=== PATIENT | female | born 1945 | race Caucasian/White ===

== ENCOUNTER 2023-12-01 13:00 | Outpatient (CLI) | payer MEDICARE, SELFPAY ==
--- NOTE | ~2023-12-01 | MM_ITS ---
EXAMINATION: MM screening [facility] w [facility] HISTORY: Screening mammogram TECHNIQUE: Craniocaudal and mediolateral oblique 3-D tomosynthesis images were obtained and synthetic 2-D images were generated. CAD analysis was submitted and interpreted. COMPARISON: No prior mammogram is available for comparison at this institution. BREAST PARENCHYMAL COMPOSITION: There are scattered areas of fibroglandular density. FINDINGS: There is no evidence of suspicious mass, calcification, or architectural distortion to sugg est malignancy in either breast. IMPRESSION: 1. No mammographic evidence of malignancy. 2. Recommend routine screening mammography in one year. BI-RADS Category 1: Negative Reviewed, dictated and finalized at location A.
== END 2023-12-01 13:01 ==
PROVIDERS: PCP Physician Assistant; Visit Provider Physician Assistant
DX: Z12.31 Encounter for screening mammogram for malignant neoplasm of breast (principal)
CPT/HCPCS: 77063; 77067

== ENCOUNTER 2024-03-12 09:49 | Outpatient (CLI) | payer MEDICARE, SELFPAY | END 2024-03-12 09:50 | disposition home or self-care (01) | LOC: ANHAUDIO 09:50 | PROVIDERS: PCP Family Medicine; Visit Provider Family Medicine | DX: H90.3 Sensorineural hearing loss, bilateral (principal) | CPT/HCPCS: 92557; 92567 ==

== ENCOUNTER 2024-04-10 08:26 | Outpatient (CLI) | payer MEDICARE, SELFPAY ==
[2024-04-10 10:28] LABS: HIV 1/2 Ab P24 Ag Result Negative (Negative)
[2024-04-10 11:07] LABS: Hepatitis C Virus Antibody Negative (Negative)
[2024-04-12 15:13] LABS: Hepatitis B DNA PCR NOT DETECTED (NOT DETECTED); Hepatitis B DNA PCR NOT DETECTED Log IU/mL (NOT DETECTED)
[2024-04-12 16:53] LABS: Hepatitis C RNA, Quant PCR <15 NOT DETECTED IU/mL (NOT DETECTED)
== END 2024-04-10 08:27 | disposition home or self-care (01) ==
PROVIDERS: PCP Family Medicine; Visit Provider Internal Medicine Rheumatology
DX: Z11.4 Encounter for screening for human immunodeficiency virus [HIV] (principal); M06.9 Rheumatoid arthritis, unspecified; Z11.59 Encounter for screening for other viral diseases; G62.9 Polyneuropathy, unspecified; R53.83 Other fatigue; M19.90 Unspecified osteoarthritis, unspecified site; M79.10 Myalgia, unspecified site; R73.09 Other abnormal glucose; E55.9 Vitamin D deficiency, unspecified; E53.8 Deficiency of other specified B group vitamins; R79.89 Other specified abnormal findings of blood chemistry
CPT/HCPCS: 36415; 86703; 86803; 87517; 87522; G0432

== ENCOUNTER 2024-05-03 09:18 | Outpatient (CLI) | payer MEDICARE, SELFPAY ==
--- NOTE | ~2024-05-03 | XR_ITS ---
Right wrist Technique: PA and lateral views were obtained. Clinical History: Pain Findings: No acute fracture or dislocation is seen. Osseous alignment is anatomic. There is mild dege nerative change of the triscaphe joint. Soft tissues are unremarkable. Impression: Mild degenerative change of the triscaphe joint. Reviewed, dictated and finalized at location . Impression: Mild degenerative change of the triscaphe joint.
--- NOTE | ~2024-05-03 | XR_ITS ---
Right Hand Technique: PA and lateral views were obtained. Clinical History: Pain Findings: No acute fracture or dislocation is seen. Osseous alignment is anatomic. There are minimal degenerative change of the DIP joints. Soft tissues are unremarkable. Impression: Minimal degenerative change of the DIP joints. Reviewed, dictated and finalized at location . Impression: Minimal degenerative change of the DIP joints.
--- NOTE | ~2024-05-03 | XR_ITS ---
AP view of the pelvis and AP and lateral views of the bilateral hip Clinical history: Pain Findings: No acute fracture or dislocation is seen. Osseous alignment is anatomic. Bilateral hip and SI joint spaces are preserved. Soft tissues are unremarkable. Impression: No significant abnormality is seen. Reviewed, dictated and finalized at location . Impression: No significant abnormality is seen.
--- NOTE | ~2024-05-03 | XR_ITS ---
Left wrist Technique: PA and lateral views were obtained. Clinical History: Pain Findings: No acute fracture or dislocation is seen. Osseous alignment is anatomic. Joint spaces are p reserved. Soft tissues are unremarkable. Impression: Unremarkable left wrist radiographs. Reviewed, dictated and finalized at location M. Impression: Unremarkable left wrist radiographs.
--- NOTE | ~2024-05-03 | XR_ITS ---
Left Hand Technique: PA and lateral views were obtained. Clinical History: Pain Findings: No acute fracture or dislocation is seen. Osseous alignment is anatomic. Joint spaces are p reserved. Soft tissues are unremarkable. Impression: Unremarkable left hand. Reviewed, dictated and finalized at location M. Impression: Unremarkable left hand.
== END 2024-05-03 09:19 | disposition home or self-care (01) ==
PROVIDERS: PCP Internal Medicine Rheumatology; Visit Provider Internal Medicine Rheumatology
DX: M25.50 Pain in unspecified joint (principal); M19.041 Primary osteoarthritis, right hand; M19.031 Primary osteoarthritis, right wrist
CPT/HCPCS: 73100; 73120; 73521

== ENCOUNTER 2024-05-28 12:36 | Outpatient (CLI) | payer MEDICARE, SELFPAY ==
--- NOTE | ~2024-05-28 | MR_ITS ---
MRI of the lumbar spine Clinical History: Back pain Technique: Axial T2-weighted images, and sagittal T1-weighted, T2-weighted, and T2 fat-sat images wer e acquired. Findings: There is posterior fusion from L2 through L5, with bilateral rods and transpedicular screws present. There is this is a prior posterior decompression changes at these levels. There is underlyi ng 6 mm anterolisthesis of L4 over L5. There is 3 mm retrolisthesis of L2 over L3. No suspicious bone marrow signal abnormality evident. At L1-L2, there is severe degenerative disc narrowing. There is mild disc bulge with advanced facet a rthropathy. There is mild central canal stenosis. There is moderate to advanced right neural foramina l narrowing, and minimal left neural foraminal narrowing. At L2-L3, there is severe degenerative disc narrowing. There is mild disc bulge. No spinal canal sten osis. There is moderate to advanced left neural foraminal narrowing, and mild right neural foraminal narrowing. At L3-L4, there is no spinal canal stenosis. There is mild to moderate bilateral neural foraminal sherita rowing. At L4-L5, there is disc bulge/uncovering. There is no haja canal stenosis. There is moderate bilater al neural foraminal narrowing, right worse than left. At L5-S1, there is severe degenerative disc narrowing. There is diffuse disc bulge with severe facet arthropathy. No haja central canal stenosis. There is severe bilateral neural foraminal contrast. Paravertebral soft tissues are unremarkable aside from expected postoperative change. Impression: Posterior fusion changes from L2 through L5. 6 mm anterolisthesis of L4 over L5. 3 mm retrolisthesis of L2 over L3. Severe degenerative spondylosis, as above. Reviewed, dictated and finalized at [facility]. Impression: Posterior fusion changes from L2 through L5. 6 mm anterolisthesis of L4 over L5. 3 mm retrolisthesis of L2 over L3. Severe degenerative spondylosis, as above.
== END 2024-05-28 12:37 | disposition home or self-care (01) ==
PROVIDERS: PCP Internal Medicine Rheumatology; Visit Provider Internal Medicine Rheumatology
DX: M47.896 Other spondylosis, lumbar region (principal); Z98.1 Arthrodesis status
CPT/HCPCS: 72148

== ENCOUNTER 2024-06-18 14:21 | Outpatient (CLI) | payer MEDICARE, SELFPAY ==
--- NOTE | ~2024-06-18 | XR_ITS ---
EXAMINATION: XR hand RT min 3V DATE: 06/18/2024 14:30 INDICATION: Right hand injury and pain of the fourth digit. TECHNIQUE: 4 views of right hand were obtained. COMPARISON: Right wrist radiographs 05/03/2024 FINDINGS: Alignment is normal. No fracture. There is severe osteoarthritis of triscaphe joint and mil d osteoarthritis of first carpometacarpal joint, third metacarpophalangeal joint, and some of the int erphalangeal joints. There is moderate osteoarthritis of first interphalangeal joint and second and t hird distal interphalangeal joints. There is a punctate calcification dorsal to fifth distal interpha langeal joint. IMPRESSION: 1. Polyarticular osteoarthritis. Reviewed, dictated and finalized at location A. EXPERIENCE ANALYST
== END 2024-06-18 14:22 | disposition home or self-care (01) ==
LOC: GOSHIMG 14:23
PROVIDERS: PCP Family Medicine; Visit Provider Family Medicine
DX: M79.644 Pain in right finger(s) (principal); M19.041 Primary osteoarthritis, right hand
CPT/HCPCS: 73130

== ENCOUNTER 2025-05-01 12:51 | Outpatient (CLI) | payer MEDICARE, SELFPAY ==
--- NOTE | ~2025-05-01 | DEXA_ITS ---
Bone Density Report Name: SHYLA CISNEROS Age: 80 Sex: Female Ethnicity: White Date of : 1945 Indication: postmenopausal; screening for osteoporosis; height loss; prior fracture; rheumatoid arthritis; Referring Provider: YOGI BEAVER Study: Bone densitometry was performed. Exam Date: May 01, 2025 Accession number: [id number] Bone Density: Region BMD T-score Z-score Classification Femoral Neck (Left) 0.703 -1.3 0.9 Osteopenia Total Hip (Left) 0.699 -2.0 0.0 Osteopenia Femoral Neck (Right) 0.754 -0.9 1.4 Normal Total Hip (Right) 0.649 -2.4 -0.4 Osteopenia Total Hip Mean 0.674 -2.2 -0.2 Osteopenia World Health Organization criteria for BMD impression classify patients as: Normal (T-score at or above -1.0), Osteopenia (T-score between -1.0 and -2.5), or Osteoporosis (T-score at or below -2.5). 10-year Fracture Risk(1): Major Osteoporotic Fracture 22% Hip Fracture 4.7% Reported Risk Factors: [place] (), Neck BMD=0.703, BMI=23.0, previous fracture, rheumatoid arthritis (1) FRAX(R) Version 3.08. Fracture probability calculated for an untreated patient. Fracture probability may be lower if the patient has received treatment. Clinical Information Provided by Patient: Has had a low trauma fracture Has rheumatoid arthritis Has used the following medications: Vitamin D Has the following medical conditions: RA Patient maximum height was 64 Menopause Age: 53 No regular weight bearing exercise Does not regularly consume dairy products Drinks caffeinated beverages Onset of menses at age 15 Number of children 2 Impression: The patient has low bone mass, based on the Right Total Hip T-score. The patient has an estimated ten-year risk of hip fracture of 4.7% and an estimated ten-year risk of major fracture of 22%, based on the WHO FRAX algorithm. The patient has risk factors, including: previous fracture. Discussion: BONE DENSITY IS LOW AT ONE OR MORE SKELETAL SITES. THE PATIENT'S BMD AND CLINICAL RISK FACTORS CONTRIBUTE TO THIS PATIENT'S HIGH RISK OF FRACTURE. This patient's lowest T-score is low at one or more skeletal sites. It meets the World Health Organization's (WHO) criteria for ?low bone mass? (T-score between -1.0 and -2.5). The patient's 10-year risk of hip fracture and 10 year risk of a major osteoporotic fracture as calculated by FRAX exceeds the threshold where pharmacological therapy is recommended by the National Osteoporosis Foundation (NOF). However, all treatment decisions require clinical judgment and consideration of individual patient factors, including patient preferences, comorbidities, previous drug use, risk factors not captured in the FRAX model (e.g., frailty, falls, vitamin D deficiency, increased bone turnover, interval significant decline in bone density) and possible under or overestimation of fracture risk by FRAX. The patient should follow a healthful lifestyle (good nutrition with adequate calcium and vitamin D, and appropriate weight-bearing exercise). Follow-Up: Consider a repeat BMD and Vertebral Fracture Assessment (VFA) exam in 2 years or sooner if medically necessary, to reassess this patient's status. Reported by: GUSTAVO on 05/01/2025 1:28:00 PM. Reviewed, dictated and finalized at location A.
== END 2025-05-01 12:52 | disposition home or self-care (01) ==
LOC: MICIMG 12:51
PROVIDERS: PCP Family Medicine; Visit Provider Family Medicine
DX: M85.89 Other specified disorders of bone density and structure, multiple sites (principal); Z78.0 Asymptomatic menopausal state
CPT/HCPCS: 77080